=== PATIENT | female | born 1975 | race Caucasian/White ===

== ENCOUNTER 2017-10-20 18:06 | Emergency (ER) | payer BC, OTHER ==
[~2017-10-20] VITALS: Wt 104.5 kg
[2017-10-20 18:15] VITALS: TEMP 98.3
[2017-10-20] MEDS ORDERED: FLAGYL 375375 MG PO (18:18)
[2017-10-20] MEDS ORDERED: MEDROL 4MG DOSPA4 MG PO (18:18)
[2017-10-20] MEDS ORDERED: TEMOVATE0.05% TP (18:18)
[2017-10-20 18:36] LABS: COLLECTION METHOD CLEAN CATCH
[2017-10-20] MEDS ORDERED: TYLENOL 500MG500 MG PO (18:42)
[2017-10-20 18:46] LABS: MUCOUS Present /lpf; PH 5 (5-8); SQUAMOUS EPITHELIAL 0-2 /hpf; URINE APPEARANCE Clear; URINE BACTERIA None Seen /hpf; URINE BILIRUBIN Negative (NEGATIVE); URINE BLOOD 1+ (NEGATIVE); URINE COLOR Yellow; URINE GLUCOSE Negative (NEGATIVE); URINE KETONE Trace (NEGATIVE); URINE LEUKOCYTE ESTERASE 1+ (NEGATIVE); URINE NITRATE Negative (NEGATIVE); URINE PROTEIN(semi-quant) 2+ (NEGATIVE); URINE RBC 0-2 /hpf
[2017-10-20 20:12] VITALS: BP 145/83; PULSE 90
== END 2017-10-20 20:13 | disposition home or self-care (01) ==
LOC: COL.ER 18:06
PROVIDERS: Nurse Practitioner
DX: Z30.432 Encounter for removal of intrauterine contraceptive device (principal); N89.8 Other specified noninflammatory disorders of vagina; Z98.890 Other specified postprocedural states
CPT/HCPCS: J1200

== ENCOUNTER → 2018-08-18 | Outpatient (CLI) | payer OTHER ==
[~2018-08-18] MED LIST: FLAGYL 375375 MG PO; MEDROL 4MG DOSPA4 MG PO; TEMOVATE0.05% TP; TYLENOL 500MG500 MG PO
== END ==
LOC: MC.RAD 10:00
DX: Z12.31 Encounter for screening mammogram for malignant neoplasm of breast (principal)